=== PATIENT | female | born 1980 | race Hispanic/Latino ===

== ENCOUNTER → 2019-05-02 | Day surgery (SDC) | payer OTHER ==
[2019-05-01 16:15] LABS: BASOPHILS % 0.5 % (0.0-1.0); EOSINOPHILS # (AUTO) 0.1 (0.0-0.4); EOSINOPHILS % 0.9 % (0.0-6.0); HEMATOCRIT 36.1 % (34.2-44.1); HEMOGLOBIN 11.9 g/dL (12.0-16.0); LYMPHOCYTES # (AUTO) 2.7 (1.0-3.2); LYMPHOCYTES % 33.2 % (18.0-39.1); MEAN CORPUSCULAR HEMOGLOBIN 28.5 pg (28-32); MEAN CORPUSCULAR VOLUME 86.4 fL (81-99); MONOCYTES # (AUTO) 0.6 (0.2-0.8); MONOCYTES % 7.7 % (4.4-11.3); NEUTROPHILS # (AUTO) 4.7 (2.1-6.9); NEUTROPHILS % 57.3 % (38.7-80.0); PLATELET COUNT 324 x10e3/uL (140-360); RED BLOOD COUNT 4.18 x10e6/uL (3.6-5.1)
[2019-05-01 16:27] LABS: INR 0.87; PROTHROMBIN TIME 12.3 seconds (11.9-14.5)
[2019-05-01 16:34] LABS: ALANINE AMINOTRANSFERASE 18 IU/L (0-55); ALBUMIN 4.1 g/dL (3.5-5.0); ALBUMIN/GLOBULIN RATIO 1.1 (0.8-2.0); ALKALINE PHOSPHATASE 89 IU/L (40-150); ANION GAP 12.4 mmol/L (8-16); BLOOD UREA NITROGEN 9 mg/dL (7-26); BUN/CREATININE RATIO 13 (6-25); CALCIUM 9.3 mg/dL (8.4-10.2); CARBON DIOXIDE 23 mmol/L (22-29); CHLORIDE 105 mmol/L (98-107); CREATININE, SERUM 0.67 mg/dL (0.57-1.11); EST GLOMERULAR FILTRATION RATE > 60 ML/MIN (60-); GLUCOSE 82 mg/dL (74-118); POTASSIUM 3.4 mmol/L (3.5-5.1); SODIUM 137 mmol/L (136-145)
[~2019-05-02] VITALS: Ht 154.9 cm; Wt 70.3 kg
[2019-05-02] VITALS (9 sets, daily range): BP systolic 126–144; BP diastolic 88–99
[~2019-05-02] MED LIST: FENTANYL CITRATE/PF 100MCG/2 ML INJ ONE; HEPARIN SOD/SOD CHLORIDE 2,000 ML ONE; IBUPROFEN200 MG PO; IOPAMIDOL 370 MG/ML 200 ML INFUS..BTL INJ ONE; LIDOCAINE HCL 2% LOCAL 20 ML VIAL ONE; MIDAZOLAM HCL 2 MG/2 ML VIAL ONE; SODIUM CHLORIDE 0.9% 1000ML 1,000 ML ONE; VERAPAMIL HCL 2.5 MG/ML 2 ML VIAL ONE
--- OUTSIDE RECORDS SUMMARY | 2019-05-02 07:32 | XMS REPORT ---
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 Unavailable Unavailable Problems This patient has no known problems. Allergies, Adverse Reactions, Alerts This patient has no known allergies or adverse reactions. Medications This patient has no known medications. Results Test Description Test Time Test Comments Text Results Atomic Results Result Comments Basic Metabolic Panel 2018-02-01 09:43:00 Sodium (test code=NA) 133 mmol/L 135-145 Potassium (test code=K) 4.8 mmol/L 3.5-5.1 Chloride (test code=CL) 96 mmol/L 98-105 Carbon Dioxide (test code=CO2) 18 mmol/L 22-29 Glucose (test code=GLU) 112 mg/dL 70-115 Blood Urea Nitrogen (test code=BUN) 5 mg/dL 6-20 Creatinine (test code=CREAT) 0.6 mg/dL 0.5-0.9 Calcium (test code=CA) 8.8 mg/dL 8.3-10.5 BUN/Creatinine Ratio (test code=BCRATIO) 8.3 Anion Gap (test code=AGAP) 19 mmol/L 7-16 Estimated GFR (test code=GFR) >60 mL/min/1.73m2 eGFR (estimated Glomerular Filtration Rate) is an estimated value,calculated from the patient's serum creatinine using the MDRD equation.It is NOT the patient's actual GFR. The eGFR provides a more clinicallyuseful measure of kidney disease than serum creatinine alone.This calculation takes sex and race into account, if the informationis provided. If the race is not provided, and the patient isAfrican-Ecuad[place], multiply by 1.212. If sex is not provided, and thepatient is female, multiply by 0.742. Results for patients <18 years ofage have not been validated by the MDRD study and should be interpretedwith caution.eGFR Result Interpretation:eGFR > or=60 is in the Normal RangeeGFR < 60 may mean kidney diseaseeGFR < 15 may mean kidney failureRanges recommended by the National Kidney Foundat ion,http://nkdep.nih.gov Hepatic Function [id number] 09:43:00* Test Item Value Reference Range Comments Prot Total (test code=TP) 7.4 g/dL 6.4-8.3 Albumin (test code=ALB) 4.0 g/dL 3.5-5.2 A/G Ratio (test code=AGRATIO) 1.2 Ratio Globulin (test code=GLOB) 3.4 2.9-3.1 Bili Total (test code=TBIL) 0.5 mg/dL 0.1-0.9 Bili Direct (test code=DBIL) <0.2 mg/dL 0.0-0.3 Bili Indirect (test code=IBIL) 0.4 Alk Phos (test code=APHOS) 76 U/L 35-104 AST (test code=AST) 64 U/L 1-32 ALT (test code=ALT) 47 U/L 1-33 CBC with [id number] 07:50:00* Test Item Value Reference Range Comments WBC (test code=WBC) 10.7 K/cumm 4.4-10.5 RBC (test code=RBC) 4.21 M/cumm 3.75-5.20 Hemoglobin (test code=HGB) 11.6 gm/dL 12.2-14.8 Hematocrit (test code=HCT) 37.7 % 36.5-44.4 MCV (test code=MCV) 89.6 fL 80-100 MCH (test code=MCH) 27.4 pg 27.0-32.5 MCHC (test code=MCHC) 30.6 g/dL 32.0-37.5 RDW (test code=RDW) 13.9 % 11.5-14.5 Platelet Count (test code=PLTCT) 326 K/cumm 140-440 MPV (test code=MPV) 10.4 fL Diff Method (test code=DIFFM) Auto Neutrophil (test code=NEUT) 84.1 % 36-70 Lymphocyte (test code=LYMPH) 9.8 % 12-44 Monocyte (test code=MONO) 5.7 % 0-11 Eosinophil (test code=EOS) 0.2 % 0-7 Basophil (test code=BASO) 0.2 % 0-2 Neutro Abs (test code=ANEUT) 9.0 K/cumm 1.6-7.4 Lymph Abs (test code=ALYMPH) 1.1 K/cumm 0.5-4.6 Loving Abs (test code=AMONO) 0.6 K/cumm 0.0-1.2 Eos Abs (test code=AEOS) 0.02 K/cumm 0.00-0.74 Baso Abs (test code=ABASO) 0.0 K/cumm 0.00-0.21 Hypochromic (test code=HYPO) Slight XR ABDOMEN KUB [id number] 12:09:52ABDOMEN, 1 VIEWCLINICAL INFORMATION: K80.20: CALCULUS OF GALLBLADDER W/O CHOLECYSTITISW/O OBSTRUCTION COMPARISONS: None available.FINDINGS:A single intraoperative supine image of the abdomen was submitted forinterpretation. Per the OR team, surgical count are correct.There are surgical skin norah in the right upper quadrant and midlineanterior pelvis. Cholecystectomy clips are also present. An abdominaldrain terminates in the right upper quadrant. Additionally, there is arectangular 1.6 x 0.3 cm radiopacity projecting over the righthemipelvis. This could represent a tubal ligation clip, and clinicalcorrelation is needed. No other radiopaque foreign body is identified.There is contrast material in the stomach and small bowel loops. Thebones are intact.IMPRESSION: Surgical clips and a drain are identified. An additional radiopacity inthe right hemipelvis should be correlated with history and physicalexam.Location: [id number], Urine, Qualitative 2018-01-31 08:48:00* Test Item Value Reference Range Comments Preg Qual [Ur] (test code=HUHCG) Negative Negative Basic Metabolic [id number] 11:54:00* Test Item Value Reference Range Comments Sodium (test code=NA) 139 mmol/L 135-145 Potassium (test code=K) 4.0 mmol/L 3.5-5.1 Chloride (test code=CL) 100 mmol/L 98-105 Carbon Dioxide (test code=CO2) 28 mmol/L 22-29 Glucose (test code=GLU) 72 mg/dL 70-115 Blood Urea Nitrogen (test code=BUN) 10 mg/dL 6-20 Creatinine (test code=CREAT) 0.6 mg/dL 0.5-0.9 Calcium (test code=CA) 9.1 mg/dL 8.3-10.5 BUN/Creatinine Ratio (test code=BCRATIO) 16.7 Anion Gap (test code=AGAP) 11 mmol/L 7-16 Estimated GFR (test code=GFR) >60 mL/min/1.73m2 eGFR (estimated Glomerular Filtration Rate) is an estimated value,calculated from the patient's serum creatinine using the MDRD equation.It is NOT the patient's actual GFR. The eGFR provides a more clinicallyuseful measure of kidney disease than serum creatinine alone.This calculation takes sex and race into account, if the informationis provided. If the race is not provided, and the patient isAfrican-Ecuad[place], multiply by 1.212. If sex is not provided, and thepatient is female, multiply by 0.742. Results for patients <18 years ofage have not been validated by the MDRD study and should be interpretedwith caution.eGFR Result Interpretation:eGFR > or=60 is in the Normal RangeeGFR < 60 may mean kidney diseaseeGFR < 15 may mean kidney failureRanges recommended by the National Kidney Foundat ion,http://nkdep.nih.gov CBC with [id number] 11:40:00* Test Item Value Reference Range Comments WBC (test code=WBC) 5.8 K/cumm 4.4-10.5 RBC (test code=RBC) 4.22 M/cumm 3.75-5.20 Hemoglobin (test code=HGB) 11.6 gm/dL 12.2-14.8 Hematocrit (test code=HCT) 36.2 % 36.5-44.4 MCV (test code=MCV) 85.7 fL 80-100 MCH (test code=MCH) 27.5 pg 27.0-32.5 MCHC (test code=MCHC) 32.0 g/dL 32.0-37.5 RDW (test code=RDW) 13.6 % 11.5-14.5 Platelet Count (test code=PLTCT) 413 K/cumm 140-440 MPV (test code=MPV) 9.3 fL Diff Method (test code=DIFFM) Auto Neutrophil (test code=NEUT) 62.5 % 36-70 Lymphocyte (test code=LYMPH) 30.9 % 12-44 Monocyte (test code=MONO) 5.9 % 0-11 Eosinophil (test code=EOS) 0.1 % 0-7 Basophil (test code=BASO) 0.6 % 0-2 Neutro Abs (test code=ANEUT) 3.6 K/cumm 1.6-7.4 Lymph Abs (test code=ALYMPH) 1.8 K/cumm 0.5-4.6 Loving Abs (test code=AMONO) 0.3 K/cumm 0.0-1.2 Eos Abs (test code=AEOS) 0.01 K/cumm 0.00-0.74 Baso Abs (test code=ABASO) 0.0 K/cumm 0.00-0.21
--- NOTE | 2019-05-02 09:30 | NUR ---
0930am Received report from Gary Gardner. Identiferx2 [facility] non fix Rt TR band approach.Iv infusing well w/o s/s infiltration. Respiration shallow and regular back to baseline orientation.98% RA. Abdomen soft and non tender Denies necessity to defecate or urinate. Bilateral PPx4 DP/PT. Offered po intake tolerated well. DC plans discussed with ,Has copies of aware of importance f/o care 2wks. TR-band removal in progress Normal neuro-vascular function. ds/gary
--- NOTE | 2019-05-02 11:00 | NUR ---
1100am TR band off Normal neuro vascular function. Site intact NO issues with hematoma or oozing Splint in place with Coban Tegaderm dressing. 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 Escorted to car per wc with [facility] escort. No gross issues pain pallor pressure or dysrhythmia. ds/rn
--- NOTE | 2019-05-02 22:04 | Operative Report ---
DATE OF PROCEDURE: 05/02/2019 SURGEON: Kristi Concepcion MD PROCEDURE TITLE: Cardiac catheterization PROCEDURE: 1. Selective coronary angiography x2. 2. Left heart catheterization. INDICATION: Chest pain. SEDATION: 1. Midazolam 2 mg. 2. Fentanyl 50 mcg. INFORMED CONSENT: Informed consent was obtained and documented in the chart. PROCEDURE IN DETAIL: The patient was brought to the cardiac catheterization laboratory in a fasting state after written informed consent was obtained. Bilateral groins and right wrist were prepped and draped in the usual sterile fashion. A 1% lidocaine was used to achieve local anesthesia over the right wrist. The right radial artery was accessed via micropuncture needle and a 5-Nepalese long sheath was inserted via modified Seldinger technique. A 5-Nepalese TIG was inserted and advanced into the ascending aorta under fluoroscopic guidance. The left main coronary artery was cannulated under fluoroscopic guidance. Selective coronary angiography was performed. The catheter was then positioned into the right coronary artery under fluoroscopic guidance. Selective coronary angiography was performed. Next, the catheter was subsequently repositioned and advanced into the left ventricle. Hemodynamic measurements were obtained. The TIG was removed over the wire followed by the 5-Nepalese sheath. TR band was placed and adequate hemostasis was achieved. No immediate complications were noted. FINDINGS: 1. Left main artery bifurcates into left anterior descending and circumflex artery. The LAD is a medium-sized vessel that wraps around the apex. There was no angiographic evidence of disease. Distal LAD was noted to be tortuous. 2. The circumflex is a moderate caliber vessel, which gives rise to a high OM1 and small OM2 and 3. There was no angiographic evidence of disease. 3. The right coronary artery is a large caliber vessel that gives rise to the PDA. There is no evidence of disease. 4. LV 160/16, LVEDP 21 mmHg. 5. AO 153/97. CONCLUSION: 1. Normal coronary arteries. 2. Elevated LVEDP. RECOMMENDATIONS: Medical management. Risk factor modification. Kristi Concepcion MD ABS/MODL /[id number] [facility]
== END | disposition home or self-care (01) ==
LOC: CATH LAB 07:20
PROVIDERS: ATTEND Internal Medicine
DX: I20.8 Other forms of angina pectoris (principal); I77.1 Stricture of artery; R03.0 Elevated blood-pressure reading, without diagnosis of hypertension; E78.5 Hyperlipidemia, unspecified; Z01.812 Encounter for preprocedural laboratory examination; Z82.49 Family history of ischemic heart disease and other diseases of the circulatory system
CPT/HCPCS: 36415; 80053; 84702; 85025; 85610; 93458; C1769; C1887; J2001; J2250; J7030; Q9967